=== PATIENT | male | born 1985 | race African-American/Black ===

== ENCOUNTER 2016-10-22 11:38 | Emergency (ER) | payer OTHER, MEDICAID ==
[~2016-10-22] VITALS: Ht 157.5 cm; Wt 84.8 kg
[~2016-10-22 11:38] MED LIST: CYCL5TAB PO; FAMO-63 PO; PRED20TA PO; TRAM-29 PO
[2016-10-22 11:45] VITALS: BP 139/86
[2016-10-22] MEDS ORDERED: HYDR-971 PO (13:02)
[2016-10-22] MEDS ORDERED: CYCL10TA2 PO (13:02)
--- NOTE | 2016-10-22 13:03 | PHYS DOC ---
Past Medical History Past Medical History: Anxiety, Depression, GERD, Hypertension, Hypothyroid Past Surgical History: Other Additional Past Surgical Histo: THYROIDECTOMY Alcohol Use: None Drug Use: None Adult General Chief Complaint Chief Complaint: PAIN CONTROL HPI HPI Patient is a 31 year old male with history of hypertension depression and anxiety who presents today with 8 out of 10 bilateral low back pain chronic in nature for the last 1 year after a refrigerator fell on him. He states has been following up with his own PCP for this pain, he is currently on meloxicam. Patient states she's been taking the meloxicam with no relief. Patient denies any new injuries. Denies any pain radiating to bilateral lower extremities. Denies any numbness or tingling to bilateral lower extremities, denies any loss of bowel bladder function. PCP is Dr. Kaela Kennedy Review of Systems Review of Systems Constitutional: Denies fever or chills [] Eyes: Denies change in visual acuity, redness, or eye pain [] GI: Denies abdominal pain, nausea, vomiting, bloody stools or diarrhea [] : Denies dysuria or hematuria [] Musculoskeletal: Bilateral low back pain Integument: Denies rash or skin lesions [] Neurologic: Denies headache, focal weakness or sensory changes [] Endocrine: Denies polyuria or polydipsia [] Allergies Allergies Allergies Coded Allergies Type Severity Reaction Last Updated Verified No Known Drug Allergies 09/13/13 No Physical Exam Physical Exam Constitutional: Well developed, well nourished, no acute distress, non-toxic appearance. [] HENT: Normocephalic, atraumatic, bilateral external ears normal, oropharynx moist, no oral exudates, nose normal. [] Skin: Warm, dry, no erythema, no rash. [] Back: Diffuse tenderness to paraspinal muscles of bilateral low lumbar region, no midline tenderness, no CVA tenderness. [] Extremities: No tenderness, no cyanosis, no clubbing, ROM intact, no edema. [] Neurologic: Alert and oriented X 3, normal motor function, normal sensory function, no focal deficits noted. [] Psychologic: Affect normal, judgement normal, mood normal. [] Current Patient Data Vital Signs Vital Signs Date Time Temp Pulse Resp B/P Pulse Ox O2 Delivery O2 Flow Rate FiO2 10/22/16 11:45 98.3 78 18 99 Room Air 98.3 EKG EKG [] Radiology/Procedures Radiology/Procedures [] Course & Med Decision Making Course & Med Decision Making Pertinent Labs and Imaging studies reviewed. (See chart for details) Patient is in the ED with exacerbation of chronic low back pain. He has an appointment with his PCP Dr. Kaela Kennedy. He is currently on meloxicam with no relief. Discharge him with some Flexeril. Discharge him with 10 tablets of [place]. Provided discharge return precautions. Discharged in stable condition. Dragon Disclaimer Dragon Disclaimer This electronic medical record was generated, in whole or in part, using a voice recognition dictation system. Departure Departure Impression: Primary Impression: Chronic back pain Disposition: HOME, SELF-CARE Condition: STABLE Referrals: JASON KENNEDY MD (PCP) Follow-up with your doctor as soon as possible Patient Instructions: Back Pain, Adult Additional Instructions: You were seen for chronic back pain. Try and follow-up with your own doctor as soon as possible. Scripts Hydrocodone/Apap 5-325 ([place] 5-325 Tablet)1 Each Tablet1-2 Tab PO Q4-6HRS #10 TAB Prov:NELA CHANDLER APRN 10/22/16 Cyclobenzaprine Hcl 10 Mg Tablet1 Tab PO TID #30 TAB Prov:NELA CHANDLER APRN 10/22/16 Problem Qualifiers Primary Impression: Chronic back pain Back pain location: low back pain Back pain laterality: bilateral Sciatica presence: without sciatica Qualified Code: M54.5 - Low back pain NELA CHANDLER APRN Oct 22, 2016 13:03
== END 2016-10-22 13:09 | disposition home or self-care (01) ==
LOC: ER 11:44
DX: M54.5 Low back pain (principal); G89.29 Other chronic pain; I10 Essential (primary) hypertension; E03.9 Hypothyroidism, unspecified; K21.9 Gastro-esophageal reflux disease without esophagitis
CPT/HCPCS: 99283

== ENCOUNTER → 2016-12-03 | Outpatient (CLI) | payer OTHER ==
[~2016-12-03] MED LIST changes: +CYCL10TA2 PO; +HYDR-971 PO
--- NOTE | 2016-12-03 12:21 | RAD ---
PROCEDURE MRI lumbar spine without contrast. HISTORY Low back pain with worsening left radiculopathy over the past 2 years. Symptoms began after a fall. No prior surgery. TECHNIQUE Sagittal T1, sagittal T2, sagittal STIR, axial T1, and axial T2 sequences are provided. COMPARISON None. FINDINGS There is no malalignment. There is no marrow edema. There is no worrisome marrow lesion. There is disc desiccation at L2-L3. Disc otherwise are well hydrated and disc height is maintained throughout. Conus medullaris is normal in signal intensity and in position. Subcutaneous edema is noted. The numbering system assumes 5 lumbar type vertebral bodies. Findings by individual level are as follows: L1-L2: There is no canal or foraminal compromise. L2-L3: Minimal disc bulge with central protrusion is noted without canal or foraminal compromise. L3-L4: There is no canal or foraminal compromise. L4-L5: There is no canal or foraminal compromise. L5-S1: There is minimal facet hypertrophy without canal or foraminal compromise. IMPRESSION Minimal degenerative disc disease in the lumbar spine without any high-grade canal or foraminal compromise. There is no herniation. Electronically signed by: Dileep Ford MD (Dec 03, 2016 12:19:10)
== END | disposition home or self-care (01) ==
LOC: MRI 10:10
PROVIDERS: ATTEND Family Medicine
DX: M51.36 Other intervertebral disc degeneration, lumbar region (principal)
CPT/HCPCS: 72148

== ENCOUNTER → 2017-02-14 | Outpatient (CLI) | payer OTHER ==
[~2017-02-14] MED LIST changes: +IOHEXOL 180 MG/ML 10 ML VIAL. ONE; +LEVO150T5 PO; +LISI-338 PO; +PANT40TA5 PO; -TRAM-29 PO; +TRAM-48 PO; +methylPREDNISolone ACETATE 40 MG/ML VIAL. ONE; +methylPREDNISolone ACETATE 80 MG/ML VIAL. ONE
== END | disposition home or self-care (01) ==
LOC: PNCL 09:35
PROVIDERS: ATTEND Anesthesiology
DX: M51.36 Other intervertebral disc degeneration, lumbar region (principal)
CPT/HCPCS: 62323; J1030; J1040

== ENCOUNTER → 2017-02-28 | Outpatient (CLI) | payer OTHER ==
[~2017-02-28] MED LIST changes: +HYDR-2758 PO; -IOHEXOL 180 MG/ML 10 ML VIAL. ONE; -methylPREDNISolone ACETATE 40 MG/ML VIAL. ONE; -methylPREDNISolone ACETATE 80 MG/ML VIAL. ONE
--- NOTE | 2017-02-28 15:12 | RAD ---
Exam: Left femur radiograph 02/28/2017 at 0927 hours Indication: Pain in left hip radiating to the leg Comparison: None available Technique: 4 views of the left femur are provided Findings: There is no acute fracture or dislocation. No joint space narrowing. No soft tissue swelling. No osseous erosion or soft tissue gas. Bone mineralization is within normal limits. Left hip and left knee are normal. Impression: No acute fracture or dislocation.
== END | disposition home or self-care (01) ==
LOC: RAD 09:07
PROVIDERS: ATTEND Family Medicine
DX: M25.552 Pain in left hip (principal)
CPT/HCPCS: 73552

== ENCOUNTER → 2017-02-28 | Outpatient (CLI) | payer OTHER | END | disposition home or self-care (01) | LOC: PNCL 08:10 | PROVIDERS: ATTEND Anesthesiology | DX: M25.552 Pain in left hip (principal) | CPT/HCPCS: 99212 ==

== ENCOUNTER → 2018-07-16 | Outpatient (CLI) | payer OTHER ==
[~2018-07-16] MED LIST changes: -HYDR-2758 PO; +HYDR-2761 PO; +HYDR-3164 PO; -HYDR-971 PO
--- NOTE | 2018-07-16 09:13 | RAD ---
Renal ultrasound, 07/16/2018: HISTORY: Left flank pain, hematuria The right kidney measures 10.1 cm in length while the left kidney measures 11.0 cm. There is a 2.5 cm cyst in the mid right kidney laterally. There is mild dilatation of the left renal collecting system. No left renal mass is seen. No intrarenal calculi are identified. Limited views of urinary bladder demonstrate bilateral ureteral jets. No bladder abnormality is seen. IMPRESSION: 1. Mild left hydronephrosis. CT scanning may be useful in evaluating the possibility of a left ureteral calculus or obstructive process, if clinically indicated. 2. Small right renal cyst. Electronically signed by: Lokesh Dye MD (07/16/2018 9:10 AM) [facility]
== END | disposition home or self-care (01) ==
LOC: US 08:10
PROVIDERS: ATTEND Family Medicine
DX: N13.30 Unspecified hydronephrosis (principal); N28.1 Cyst of kidney, acquired; R31.9 Hematuria, unspecified
CPT/HCPCS: 76770

== ENCOUNTER → 2018-08-10 | Outpatient (CLI) | payer OTHER ==
--- NOTE | 2018-08-10 10:47 | RAD ---
Examination: CT of the abdomen pelvis without contrast HISTORY: History of left flank pain, hydronephrosis. COMPARISON: None available TECHNIQUE: Axial CT images of the abdomen pelvis were performed without contrast. Coronal and sagittal reformats are performed Exposure: One or more of the following individualized dose reduction techniques were utilized for this examination: 1. Automated exposure control 2. Adjustment of the mA and/or kV according to patient size 3. Use of iterative reconstruction technique FINDINGS: The bibasilar lungs are clear. No evidence of free air identified in the abdomen. The evaluation of the solid organs is limited due to lack of IV contrast. The visualized noncontrasted liver, spleen, adrenals grossly appears unremarkable. The bladder is mildly distended. The stomach is mildly distended. The visualized pancreas grossly appears unremarkable. The small bowel is nondilated. The appendix is normal. Feces and gas noted in the colon. Urinary bladder is mildly distended. No evidence of intrarenal collecting system calculi or hydronephrosis identified. There is a cystic structure identified in the right kidney measuring 2.2 cm difficult to characterize without contrast could be a cyst or cystic lesion. The caliber of the aorta grossly appears unremarkable. No evidence of lytic bony destructive lesion. IMPRESSION: 1. No evidence of intrarenal collecting system calculi or hydronephrosis. 2. A 2.2 cm cystic structure identified in the right kidney could be a cyst or cystic lesion. The examination is limited without IV contrast. Follow-up ultrasound can be considered. Electronically signed by: Arun Cuevas MD (08/10/2018 10:43 AM) [id number]
== END | disposition home or self-care (01) ==
LOC: CT 10:36
PROVIDERS: ATTEND Family Medicine
DX: N32.89 Other specified disorders of bladder (principal)
CPT/HCPCS: 74176

== ENCOUNTER → 2019-03-02 | Outpatient (CLI) | payer OTHER ==
[~2019-03-02] MED LIST changes: -PANT40TA5 PO; +PANT40TA77 PO
--- NOTE | 2019-03-02 09:45 | KCIC ---
Indication: Right renal cyst follow-up TECHNIQUE: Grayscale and color Doppler images of the kidneys COMPARISON: 07/16/2018. FINDINGS: Right kidney measures 10.2 x 4.8 x 5.1 cm without hydronephrosis. Simple cyst in the interpolar right kidney measuring 2.3 x 1.9 x 2.3 cm, previously 2.4 x 2.5 x 2.1 cm. IVC within normal limits. No aortic aneurysm. Visualized bladder within normal limits. Left kidney measures 10.6 x 5.3 x 4.4 cm with stable dilation of the renal pelvis. Prostate volume of 30 cc. IMPRESSION: 1. Relatively stable simple appearing interpolar right kidney cyst. 2. Stable mild pelviectasis in the left kidney. Electronically signed by: Isaiah Thomas DO (03/02/2019 9:42 AM) [facility]
== END | disposition home or self-care (01) ==
LOC: KCIC US 07:37
PROVIDERS: ATTEND Family Medicine
DX: N28.1 Cyst of kidney, acquired (principal)
CPT/HCPCS: 76770

== ENCOUNTER → 2021-02-02 | Outpatient (CLI) | payer MEDICARE, MEDICAID ==
[~2021-02-02] MED LIST changes: -LISI-338 PO; +LISI-517 PO
--- NOTE | 2021-02-02 13:14 | RAD ---
MR LUMBAR SPINE [id number] History: LUMBAR RADICULOPATHY RIGHT WORST THAN LEFT Technique: Multiplanar, multi sequential MR imaging was performed of the lumbar spine without and wit h intravenous contrast. Comparison: MRI dated 12/03/2016 Findings: Normal vertebral body height and alignment. Straightening the spine, may reflect muscle spasm. Intero sseous hemangioma at S1 vertebral body, unchanged. No fracture. Conus terminates at the normal locati on. No evidence of nerve root clumping. Mild degenerative changes with disc desiccation and disc spac e narrowing, specific level as follow: L1-L2: New disc desiccation. No canal or neuroforaminal narrowing. L2-L3: Similar disc desiccation. No canal or neuroforaminal narrowing. L3-L4: Central annular tear, new since prior exam. No canal or neuroforaminal narrowing. L4-L5: No canal or neuroforaminal narrowing. L5-S1: New disc desiccation with small central disc protrusion. No canal or neuroforaminal narrowing. Impression: 1. Mild degenerative changes without significant canal stenosis or neuroforaminal narrowing. 2. Straightening of the lumbar spine, may reflect muscle spasm. Electronically signed by: Rosalva Barksdale MD (02/02/2021 1:11 PM) [id number]
== END ==
LOC: MRI 10:43
PROVIDERS: ATTEND Family Medicine
DX: M47.26 Other spondylosis with radiculopathy, lumbar region (principal)
CPT/HCPCS: 72148